=== PATIENT | female | born 1955 | race Two or more races ===

== ENCOUNTER 2021-07-07 08:15 | Day surgery (SDC) | payer OTHER ==
[~2021-07-07 08:15] MED LIST: FOLIC ACID PO; OMEGA3 PO; SUPER B-50 COM1 EACH PO; VITAMIN D PO
[2021-07-07] MEDS ORDERED: COLACE100 MG PO (12:31)
[2021-07-07] MEDS ORDERED: ULTRACET PO ×2 (12:31→14:25)
== END 2021-07-07 17:25 | disposition home or self-care (01) ==
LOC: CIR.AMB 08:15
PROVIDERS: ATTEND Surgery
DX: D12.8 Benign neoplasm of rectum (principal); Z20.822 Contact with and (suspected) exposure to COVID-19